=== PATIENT | female | born 1950 | race Caucasian/White ===

== ENCOUNTER → 2018-04-13 | Outpatient (CLI) | payer OTHER ==
[~2018-04-13] MED LIST: ANASTROZOLE1 M1 PO; ARIMIDEX1 MG PO; ATOXIMETIN-B1 CAP PO; COENZYME Q10 PO; COMPAZINE SR10 MG PO; HYDROCHLOROTHIA25 MG PO; LISINOPRIL AND1 TA2 PO; LISINOPRIL/HCTZ1 TA2 PO; LOVASTATIN10 MG PO; LOVASTATIN20 MG PO; LOVASTATIN40 MG PO; METFORMIN HCL500 MG PO; MOTRIN800 MG PO; PERCOCET 325 MG1 TA7 PO; POTASSIUM20 MEQ PO; ROBAXIN750 MG PO; VALTREX1 GM PO; VICODIN 5/500 505 MG PO; ZOFRAN ODT4 MG SL
== END | disposition home or self-care (01) ==
LOC: MAMMO 10:57
DX: C50.911 Malignant neoplasm of unspecified site of right female breast (principal)

== ENCOUNTER → 2018-10-18 | Outpatient (CLI) | payer OTHER | END | disposition home or self-care (01) | LOC: RAD 12:25 | DX: M12.88 Other specific arthropathies, not elsewhere classified, other specified site (principal); M79.604 Pain in right leg; M79.605 Pain in left leg ==

== ENCOUNTER → 2019-05-29 | Outpatient (CLI) | payer OTHER | END | disposition home or self-care (01) | LOC: RAD 08:23 | DX: Z13.820 Encounter for screening for osteoporosis (principal); E28.39 Other primary ovarian failure; R63.5 Abnormal weight gain; N95.9 Unspecified menopausal and perimenopausal disorder ==

== ENCOUNTER → 2020-12-09 | Outpatient (CLI) | payer OTHER | END | disposition home or self-care (01) | LOC: MAMMO 12:33 | PROVIDERS: ATTEND Family Medicine | DX: Z12.31 Encounter for screening mammogram for malignant neoplasm of breast (principal); N64.89 Other specified disorders of breast; Z85.3 Personal history of malignant neoplasm of breast ==

== ENCOUNTER → 2022-03-23 | Outpatient (CLI) | payer OTHER | END | disposition home or self-care (01) | LOC: MAMMO 13:00 | PROVIDERS: ATTEND Family Medicine | DX: R92.1 Mammographic calcification found on diagnostic imaging of breast (principal); N63.11 Unspecified lump in the right breast, upper outer quadrant; N64.59 Other signs and symptoms in breast; Z85.3 Personal history of malignant neoplasm of breast ==